=== PATIENT | male | born 1975 | race Hispanic/Latino ===

== ENCOUNTER 2017-04-18 19:55 | Emergency (ER) | payer SELFPAY ==
[2017-04-18 20:06] VITALS: BP 110/78; PULSE 99; RESP 18; TEMP 98.1; O2SAT 99
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
--- NOTE | 2017-04-19 08:56 | RAD ---
PROCEDURE: Right Knee Radiographs. HISTORY: knee pain COMPARISON: None. FINDINGS: BONES: Normal. No fracture. JOINTS: Normal. No osteoarthritis. JOINT EFFUSION: None. OTHER FINDINGS: None. IMPRESSION: Normal radiographs of the right knee.
== END 2017-04-18 23:10 | disposition home or self-care (01) ==
LOC: H.ER 19:55
DX: S80.211A Abrasion, right knee, initial encounter (principal); S01.81XA Laceration without foreign body of other part of head, initial encounter; Y04.0XXA Assault by unarmed brawl or fight, initial encounter; Y92.89 Other specified places as the place of occurrence of the external cause; J32.9 Chronic sinusitis, unspecified